=== PATIENT | female | born 1945 | race Caucasian/White ===

== ENCOUNTER 2018-07-30 17:18 | Emergency (ER) | payer BC, MEDICARE ==
[2018-07-30 18:10] LABS: ABSOLUTE NEUTROPHIL COUNT 3.12; BASO % 0.4 % (0-6); EOS % 1.7 % (0-6); GRAN % 64.4 % (47-80); HEMATOCRIT 42.9 % (35.0-47.0); HEMOGLOBIN 14.3 gm/dl (11.6-16.0); LYMPH % 26.9 % (16-45); MEAN CORPUSCULAR HEMOGLOBIN 29.7 pg (27-33); MEAN CORPUSCULAR HGB CONC 33.3 g/dl (32-36); MEAN PLATELET VOLUME 9.7 fl (7.4-10.4); MONO % 6.6 % (0-9); PLATELET COUNT 214 K/uL (130-400); RED BLOOD COUNT 4.82 M/uL (3.80-5.40); RED CELL DISTRIBUTION WIDTH 13.7 % (11.5-14.5); WHITE BLOOD COUNT W/O DIFF 4.8 K/uL (4.2-12.2)
--- NOTE | 2018-07-30 18:36 | Emergency Department Record ---
History of Present Illness - General Chief complaint: Female Urogenital Problem Stated complaint: VAGINAL BLEEDING, BIOPSY Time Seen by Provider: 07/30/18 17:23 Source: Patient Mode of Arrival: Ambulatory Limitations: No limitations - History of Present Illness Initial comments: pt had a bx of her labia this am. then this afternoon it started bleeding. she went through 6 pads and couldnt get it to stop Complaint: Vaginal bleeding Onset/Timin -: Hour(s) Severity scale (1-10): 8 Quality: Aching, Burning, Sharp Associated Symptoms: Vaginal bleeding - Related Data Home Medications Medication Instructions Recorded Confirmed Last Taken Acetaminop W/ Codeine 300/60Mg 1 udtab PO Q6HR 07/30/18 07/30/18 07/30/18 [Acetaminophen-Cod #4 Tablet] Lisinopril 20 mg PO DAILY 07/30/18 07/30/18 07/30/18 Pregabalin [Lyrica] 225 mg PO DAILY 07/30/18 07/30/18 07/30/18 Thyroid,Pork [Talent Development Director Thyroid] 15 mg PO DAILY 07/30/18 07/30/18 07/30/18 Allergies Allergy/AdvReac Type Severity Reaction Status Date / Time No Known Drug Allergies Allergy Verified 07/30/18 17:35 Travel Screening - Travel/Exposure Within Last 30 Days Have you traveled within the last 30 days?: No - Travel/Exposure Within Last Year Have you traveled outside the [place] in the last year?: No - Additonal Travel Details Have you been exposed to anyone with a communicable illness?: No - Travel Symptoms Symptom Screening: None Review of Systems Reviewed: No additional complaints except as noted below Constitutional: Reports: As per HPI. Denies: Chills, Fever, Malaise, Night sweats, Weakness, Weight change Eyes: Reports: As per HPI. Denies: Eye discharge, Eye pain, Photophobia, Vision change ENT: Reports: As per HPI. Denies: Congestion, Dental pain, Ear pain, Epistaxis, Hearing loss, Throat pain Respiratory: Reports: As per HPI. Denies: Cough, Dyspnea, Hemoptysis, Stridor, Wheezes Cardiovascular: Reports: As per HPI. Denies: Arrhythmia, Chest pain, Dyspnea on exertion, Edema, Murmurs, Orthopnea, Palpitations, Paroxysmal nocturnal dyspnea, Rheumatic Fever, Syncope Endocrine: Reports: As per HPI. Denies: Fatigue, Heat or cold intolerance, Polydipsia, Polyuria Gastrointestinal: Reports: As per HPI. Denies: Abdominal pain, Constipation, Diarrhea, Hematemesis, Hematochezia, Melena, Nausea, Vomiting Genitourinary: Reports: As per HPI. Denies: Abnormal menses, Discharge, Dyspareunia, Dysuria, Frequency, Hematuria, Incontinence, Retention, Urgency Musculoskeletal: Reports: As per HPI. Denies: Arthralgia, Back pain, Gout, Joint swelling, Myalgia, Neck pain Skin: Reports: As per HPI. Denies: Bruising, Change in color, Change in hair/nails, Lesions, Pruritus, Rash Neurological: Reports: As per HPI. Denies: Abnormal gait, Confusion, Headache, Numbness, Paresthesias, Seizure, Tingling, Tremors, Vertigo, Weakness Psychiatric: Reports: As per HPI. Denies: Anxiety, Auditory hallucinations, Depression, Homicidal thoughts, Suicidal thoughts, Visual hallucinations Hematological/Lymphatic: Reports: As per HPI. Denies: Anemia, Blood Clots, Easy bleeding, Easy bruising, Swollen glands Past Medical History - SOCIAL HISTORY Smoking Status: Never smoker Alcohol Use: None Drug Use: None - RESPIRATORY Hx Respiratory Disorders: Yes Hx Sleep Apnea: Yes Hx of CPAP: No - CARDIOVASCULAR Hx Cardio Disorders: Yes Hx Hypertension: Yes - NEURO Hx Neuro Disorders: Yes Hx Seizures: Yes - GI Hx GI Disorders: Yes Hx Abdominal Pain: Yes - Hx Genitourinary Disorders: No - ENDOCRINE Hx Endocrine Disorders: No Hx Thyroid Disease: Yes - MUSCULOSKELETAL Hx Musculoskeletal Disorders: Yes Hx Fibromyalgia: Yes - PSYCH Hx Psych Problems: No - HEMATOLOGY/ONCOLOGY Hx Hematology/Oncology Disorders: No Family Medical History Any Significant Family History?: No Physical Exam - General General Appearance: Alert, Oriented x3, Cooperative, No acute distress - Head Head exam: Normal inspection - Eye Eye exam: Normal appearance, PERRL, EOMI Pupils: Normal accommodation - ENT ENT exam: Normal exam, Mucous membranes moist, Normal external ear exam, Normal orophraynx, TM's normal bilaterally Ear exam: Normal external inspection. negative: External canal tenderness Nasal Exam: Normal inspection. negative: Discharge, Sinus tenderness Mouth exam: Normal external inspection, Tongue normal Teeth exam: Normal inspection. negative: Dental caries Throat exam: Normal inspection. negative: Tonsillar erythema, Tonsillar exudate - Neck Neck exam: Normal inspection, Full ROM. negative: Tenderness - Respiratory Respiratory exam: Normal lung sounds bilaterally. negative: Respiratory distress - Cardiovascular Cardiovascular Exam: Regular rate, Normal rhythm, Normal heart sounds - GI/Abdominal GI/Abdominal exam: Soft, Normal bowel sounds. negative: Tenderness - Rectal Rectal exam: Deferred - exam: Vaginal bleeding (from bx sight) - Extremities Extremities exam: Normal inspection, Full ROM, Normal capillary refill. negative: Tenderness - Back Back exam: Reports: Normal inspection, Full ROM. Denies: Muscle spasm, Rash noted, Tenderness - Neurological Neurological exam: Alert, Normal gait, Oriented X3, Reflexes normal - Psychiatric Psychiatric exam: Normal affect, Normal mood - Skin Skin exam: Dry, Intact, Normal color, Warm Course Vital Signs 07/30/18 17:22 Temperature 98.0 F Pulse Rate 66 Respiratory 20 Rate Blood Pressure 212/78 Pulse Ox 98 - Reevaluation(s) Reevaluation #1: 07/30/18 19:19 d/w dr sarkar who wanted silver nitrate applied Medical Decision Making - Lab Data Result diagrams: 07/30/18 18:08 Lab Results 07/30/18 Range/Units 18:08 WBC 4.8 (4.2-12.2) K/uL RBC 4.82 (3.80-5.40) M/uL Hgb 14.3 (11.6-16.0) gm/dl Hct 42.9 (35.0-47.0) % MCV 89.0 (81-97) fl MCH 29.7 (27-33) pg MCHC 33.3 (32-36) g/dl RDW 13.7 (11.5-14.5) % Plt Count 214 (130-400) K/uL MPV 9.7 (7.4-10.4) fl Gran % 64.4 (47-80) % Lymphocytes % 26.9 (16-45) % Monocytes % 6.6 (0-9) % Eosinophils % 1.7 (0-6) % Basophils % 0.4 (0-6) % Absolute Neutrophils 3.12 Disposition Disposition: Discharge Clinical Impression: Post-op bleeding Qualifiers: Surgical complication system/body Area: skin Procedure type: dermatologic Qualified Code(s): L76.21 - Postprocedural hemorrhage of skin and subcutaneous tissue following a dermatologic procedure Disposition: Home, Self-Care Condition: (1) Good Instructions: Postoperative Bleeding (ED) Additional Instructions: follow up with dr sarkar. return sooner if worse. rest. Forms: Patient Portal Access Quality - Quality Measures Quality Measures: N/A - Blood Pressure Screening Does Patient Have Any of the Following: Active Dx of HTN Blood Pressure Classification: Hypertensive Reading Systolic Measurement: 212 Diastolic Measurement: 78 Screening for High Blood Pressure: Patient Exclusion, Hx of HTN [G9744]
[2018-07-30] MEDS ORDERED: TRANEXAMIC ACID 1,000 MG/10 ML ML TOP ONE (19:42)
[2018-07-30] MEDS ORDERED: THROMBIN/GELATIN FOAM HEMOSTAT (THROMBI-GEL) TP ONE (19:45)
== END 2018-07-30 20:02 | disposition home or self-care (01) ==
LOC: ER 17:18
DX: N99.820 Postprocedural hemorrhage of a genitourinary system organ or structure following a genitourinary system procedure (principal); I10 Essential (primary) hypertension; Y84.8 Other medical procedures as the cause of abnormal reaction of the patient, or of later complication, without mention of misadventure at the time of the procedure; Y76.3 Surgical instruments, materials and obstetric and gynecological devices (including sutures) associated with adverse incidents
CPT/HCPCS: 12001; 85025; 99283; 99284

== ENCOUNTER 2018-12-02 09:38 | Emergency (ER) | payer MEDICARE ==
--- NOTE | 2018-12-02 09:46 | Emergency Department Record ---
History of Present Illness - General Chief Complaint: Fall Injury Stated Complaint: FALL Time Seen by Provider: 12/02/18 09:43 Source: Patient, Family Mode of Arrival: Ambulatory Limitations: No limitations - History of Present Illness Initial Comments: 73 yo female presents with pain after a fall last Sunday. She states she was bending over picking up gardening tools. She fell backward. She has pain over the right chest and right knee. No blood thinners. She denies and LOC. She does not think she hit her head. It hurts to cough on the right. She has had right knee surgery in the remote past. She has some nausea but no abdominal pain or tenderness. She has not seen and bruising or swelling. She has not seen her PCP or any health care provider for her current pain from last week. MD Complaint: Fall -: Days(s) Fall From: Standing (bending over) When Fall Occurred: # Days [employer]PER[employer] (5) Fall Witnessed: No Place Fall Occurred: Home Loss of Consciousness: None Prolonged Down Time?: No Symptoms Prior to Fall: None Location: Chest Location - Extremities: Right: Knee Severity: Moderate Quality: Aching Context: Other (Fell about 6 weeks ago as well) - [place] Coma Scale Eye Response: (4) Open spontaneously Motor Response: (6) Obeys commands Verbal Response: (5) Oriented [place] Total: 15 - Related Data Home Medications Medication Instructions Recorded Confirmed Last Taken Levothyroxine Sodium [Synthroid] 75 mcg PO DAILY 12/02/18 12/02/18 12/02/18 Previous Rx's Medication Instructions Recorded Hydrocodone/APAP 5/325Mg [[place] 1 each PO Q6H #12 tab 12/02/18 5Mg/325Mg] Allergies Allergy/AdvReac Type Severity Reaction Status Date / Time No Known Drug Allergies Allergy Verified 12/02/18 09:48 Review of Systems Constitutional: Denies: Chills, Fever, Malaise, Weakness Eyes: Denies: Eye discharge ENT: Denies: Congestion, Throat pain Respiratory: Denies: Cough, Dyspnea, Hemoptysis, Wheezes Cardiovascular: Reports: Chest pain (right ribs). Denies: Edema, Orthopnea, Syncope Endocrine: Denies: Fatigue, Polydipsia, Polyuria Gastrointestinal: Reports: Nausea. Denies: Abdominal pain, Diarrhea, Vomiting Genitourinary: Denies: Dysuria, Urgency Musculoskeletal: Reports: Arthralgia, Back pain, Myalgia Skin: Denies: Bruising, Change in color, Rash Neurological: Denies: Headache Psychiatric: Denies: Anxiety Hematological/Lymphatic: Denies: Easy bleeding, Easy bruising Past Medical History - SOCIAL HISTORY Smoking Status: Never smoker Drug Use: None - RESPIRATORY Hx Respiratory Disorders: Yes Hx Sleep Apnea: Yes Hx of CPAP: No - CARDIOVASCULAR Hx Cardio Disorders: Yes Hx Hypertension: Yes - NEURO Hx Neuro Disorders: Yes Hx Seizures: Yes - GI Hx GI Disorders: Yes Hx Abdominal Pain: Yes - Hx Genitourinary Disorders: No - ENDOCRINE Hx Endocrine Disorders: No Hx Thyroid Disease: Yes - MUSCULOSKELETAL Hx Musculoskeletal Disorders: Yes Hx Fibromyalgia: Yes - PSYCH Hx Psych Problems: No - HEMATOLOGY/ONCOLOGY Hx Hematology/Oncology Disorders: No Physical Exam - General General Appearance: Alert, Oriented x3, Cooperative, No acute distress Limitations: No limitations - Head Head exam: Atraumatic, Normocephalic, Normal inspection - Eye Eye exam: Normal appearance, PERRL. negative: Conjunctival injection, Scleral icterus - ENT ENT exam: Normal exam, Mucous membranes moist Ear exam: Normal external inspection Nasal Exam: Normal inspection Mouth exam: Normal external inspection Teeth exam: Normal inspection - Neck Neck exam: Normal inspection, Full ROM. negative: Lymphadenopathy, Meningismus, Tenderness - Respiratory Respiratory exam: Normal lung sounds bilaterally, Chest wall tenderness (tender right ribs in the upper anterior and lateral chest). negative: Accessory muscle use, Decreased breath sounds, Prolonged expiratory, Respiratory distress, Rhonchi, Stridor, Wheezes - Cardiovascular Cardiovascular Exam: Regular rate, Normal rhythm, Normal heart sounds Peripheral Pulses: 2+: Radial (R), Radial (L) - GI/Abdominal GI/Abdominal exam: Soft. negative: Distended, Guarding, Tenderness - Rectal Rectal exam: Deferred - exam: Deferred - Extremities Extremities exam: Normal inspection, Full ROM, Tenderness. negative: Calf tenderness, Joint swelling, Pedal edema Image of Full Body: 1 - tenderness anterior lateral chest 2 - lateral tenderness,stable - Back Back exam: Reports: Normal inspection, Full ROM. Denies: CVA tenderness (R), CVA tenderness (L), Muscle spasm, Paraspinal tenderness, Tenderness, Vertebral tenderness - Neurological Neurological exam: Alert, Oriented X3 - Psychiatric Psychiatric exam: Normal affect, Normal mood - Skin Skin exam: Dry, Intact, Normal color, Warm Course - Reevaluation(s) Reevaluation #1: 12/02/18 10:21 The CBC was reviewed No acute abnormality 12/02/18 10:53 The HCT was reviewed. No acute injury The chest CT was reviewed. minimally displaced right 5th anterior lateral rib fracture and possible ND 4th rib fracture. 12/02/18 10:56 No acute changes on the CMP The rib fractures occurred 5 days ago. Her vitals reviewed. No hypoxia, tac hycardia or signs of impairment after 5 days. She will be treated with increased pain control, RT to teach IS. We discussed home care and importance of scheduling a recheck with the PCP as well as reasons to return to the ED for a recheck. 12/02/18 11:20 The Knee XR was reviewed. No fracture. Significant degenerative changes noted. 12/02/18 11:39 The patient remains calm with her breathing RT finished the education on breathing exercises She has normal vitals and ready for DC Medical Decision Making - Lab Data Result diagrams: 12/02/18 09:53 12/02/18 09:53 Disposition Disposition: Discharge Clinical Impression: Right rib fracture Qualifiers: Encounter type: initial encounter Rib fracture type: multiple ribs Fracture type: closed Qualified Code(s): S22.41XA - Multiple fractures of ribs, right side, initial encounter for closed fracture Contusion, knee Qualifiers: Encounter type: initial encounter Laterality: right Qualified Code(s): S80.01XA - Contusion of right knee, initial encounter Disposition: Home, Self-Care Condition: (1) Good Instructions: Rib Fracture (ED), Knee Pain (ED) Additional Instructions: Call your doctor for the next available follow up appointment to be seen this week Review this ER visit and the tests performed with your family doctor Return to the ER for a recheck if worse, any new concerns or questions Take the prescriptions provided as directed Use the breathing exercise as directed by the respiratory therapy for your rib fractures Prescriptions: Hydrocodone/APAP 5/325Mg [[place] 5Mg/325Mg] 1 each PO Q6H #12 tab Forms: Patient Portal Access Time of Disposition: 11:21 Quality - Quality Measures Quality Measures: N/A - Blood Pressure Screening Does Patient Have Any of the Following: Active Dx of HTN Blood Pressure Classification: Hypertensive Reading Systolic Measurement: 169 Diastolic Measurement: 79 Screening for High Blood Pressure: Patient Exclusion, Hx of HTN [G9744]
[2018-12-02 10:03] LABS: ABSOLUTE NEUTROPHIL COUNT 2.93; BASO % 0.2 % (0-6); EOS % 1.6 % (0-6); HEMATOCRIT 44.8 % (35.0-47.0); HEMOGLOBIN 14.3 gm/dl (11.6-16.0); LYMPH % 25.9 % (16-45); MEAN CELL VOLUME 89.4 fl (81-97); MEAN CORPUSCULAR HEMOGLOBIN 28.5 pg (27-33); MEAN CORPUSCULAR HGB CONC 31.9 g/dl (32-36); MEAN PLATELET VOLUME 9.4 fl (7.4-10.4); MONO % 6.3 % (0-9); PLATELET COUNT 213 K/uL (130-400); RED BLOOD COUNT 5.01 M/uL (3.80-5.40); WHITE BLOOD COUNT W/O DIFF 4.4 K/uL (4.2-12.2)
[2018-12-02 10:16] LABS: BLOOD UREA NITROGEN 15 mg/dL (8-23)
[2018-12-02 10:17] LABS: CREATININE 0.7 mg/dL (0.5-0.9); EST GLOMERULAR FILTRATION RATE > 60 mL/min; PARTIAL THROMBOPLASTIN TIME 28.7 SECONDS (24.5-39.1); PROTHROMBIN TIME (PATIENT) 10.4 SECONDS (9.5-12.1)
[2018-12-02 10:19] LABS: GLUCOSE,RANDOM 109 mg/dL (74-109)
[2018-12-02 10:22] LABS: ALB/GLOB RATIO 1.6 (1.1-1.8); ALBUMIN 4.3 g/dL (4.0-5.0); ALKALINE PHOSPHATASE 115 U/L (35-104); ALT/SGPT 14 U/L (<33); AST/SGOT 16 U/L (10.0-35.0)
[2018-12-02] MEDS ORDERED: KETOROLAC 30 MG/ML VIAL IVP ONE (11:13)
[2018-12-02] MEDS ORDERED: HYDROCODONE/APAP 7.5/325MG TABLET PO ONE (11:13)
[2018-12-02] MEDS ORDERED: ACETAMINOPHEN 1,000 MG/100 ML BTL IVPB ONE (11:13)
--- NOTE | 2018-12-04 08:20 | CT SCAN REPORT ---
EXAM: CT OF THE BRAIN WITHOUT CONTRAST HISTORY: PAIN RIGHT MID RIBS AND AXILLARY REGION. FALL SIX WEEKS AGO. TRAUMA TO HEAD SIX WEEKS AGO AND FIVE DAYS AGO. TECHNIQUE: Routine noncontrast CT of the brain was obtained. Comparison: None. FINDINGS: The ventricles and subarachnoid spaces are normal in size for age. Minor white matter lucencies are noted in the cerebral hemispheres. These are nonspecific, but likely areas of chronic microvascular ischemia. No other area of abnormally increased or decreased attenuation is noted throughout the brain substance. No abnormal extraaxial fluid collection identified. No acute skull fracture. The visualized paranasal sinuses and mastoid air cells are clear. The orbits as visualized are unremarkable. IMPRESSION: 1. NO CT EVIDENCE OF AN ACUTE INTRACRANIAL ABNORMALITY NOR SKULL FRACTURE. 2. MINOR WHITE MATTER LUCENCIES IN EACH CEREBRAL HEMISPHERE ARE NONSPECIFIC, BUT LIKELY AREAS OF CHRONIC MICROVASCULAR ISCHEMIA. JOB NUMBER: [id number] AND [id number] [facility]
--- NOTE | 2018-12-04 08:33 | CT SCAN REPORT ---
EXAM: CT OF THE CHEST WITHOUT CONTRAST HISTORY: PAIN IN RIGHT MID RIBS AND AXILLA. MULTIPLE FALLS. TECHNIQUE: Routine noncontrast helical CT examination of the chest was obtained. Comparison: None. FINDINGS: The heart is mildly enlarged. There is atherosclerosis of the thoracic aorta without focal aneurysmal dilatation. The ascending thoracic aorta at the level of the right main pulmonary artery measures approximately 3.5 cm. No suspicious noncalcified mediastinal or hilar mass/lymphadenopathy is seen though evaluation of the fiordaliza is limited by lack of IV contrast utilization. There are calcified lymph nodes in the low paratracheal, precarinal, and right hilar regions consistent with healed granulomatous disease. There is questionable trace fluid in the dependent right basilar pleural space. The pleural spaces are otherwise clear. The central airways are clear. No lung consolidation is identified. Mild dependent atelectasis is suspected in each lung. No axillary adenopathy nor hematoma. There is a minimally displaced acute fracture of the anterolateral aspect of the right fifth rib. There is a possible nondisplaced fracture of the anterolateral right fourth rib. No other acute rib fracture is demonstrated. No lytic or blastic bone lesion. There are degenerative changes scattered throughout the visualized spine and shoulder girdles. The adrenal glands are not enlarged. The renal collecting system pelves are somewhat patulous likely due to their extrarenal location. The gallbladder is surgically absent. There is prominence of the central biliary tree likely a physiologic response to surgical absence of the gallbladder. Correlation with serum bilirubin and alkaline phosphatase levels is recommended. Healed granulomatous disease within the spleen. IMPRESSION: 1. MINIMALLY DISPLACED FRACTURE OF THE ANTEROLATERAL RIGHT FIFTH RIB AND POSSIBLE NONDISPLACED FRACTURE OF THE ANTEROLATERAL RIGHT FOURTH RIB. 2. CARDIOMEGALY. 3. MILD DEPENDENT ATELECTASIS IN EACH LUNG. 4. POSSIBLE TINY DEPENDENT RIGHT BASILAR PLEURAL EFFUSION. NO PNEUMOTHORAX. 5. HEALED GRANULOMATOUS DISEASE WITHIN THE THORAX AND SPLEEN. 6. STATUS POST CHOLECYSTECTOMY. MILD PROMINENCE OF THE CENTRAL BILIARY TREE LIKELY RELATES TO PHYSIOLOGIC RESPONSE TO SURGICAL ABSENCE OF THE GALLBLADDER. CORRELATION WITH SERUM BILIRUBIN AND ALKALINE PHOSPHATASE LEVELS IS RECOMMENDED. 7. 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 JOB NUMBER: [id number] [facility]
--- NOTE | 2018-12-04 08:37 | RADIOLOGY REPORT ---
EXAM: RIGHT KNEE, TWO VIEWS HISTORY: DIFFUSE RIGHT KNEE PAIN. RECENT FALLS. TECHNIQUE: AP and lateral views of the right knee were obtained. Comparison: None. Encounter: Initial. FINDINGS: There is borderline to mild diffuse osteopenia. No convincing acute fracture nor dislocation. 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 There is a borderline to small suprapatellar joint effusion. There is a possible loose body within the suprapatellar bursa medially. IMPRESSION: 1. BORDERLINE TO MILD DIFFUSE OSTEOPENIA. NO ACUTE FRACTURE NOR DISLOCATION. 2. TRICOMPARTMENTAL OSTEOARTHRITIS WITH BORDERLINE TO SMALL SUPRAPATELLAR JOINT EFFUSION. POSSIBLE 8 MM LOOSE BODY IN THE SUPRAPATELLAR BURSA MEDIALLY. JOB NUMBER: [id number] [facility]
== END 2018-12-02 11:58 | disposition home or self-care (01) ==
LOC: ER 09:38
DX: S22.41XA Multiple fractures of ribs, right side, initial encounter for closed fracture (principal); S80.01XA Contusion of right knee, initial encounter; R11.0 Nausea; X50.1XXA Overexertion from prolonged static or awkward postures, initial encounter; Y93.H2 Activity, gardening and landscaping; Y92.007 Garden or yard of unspecified non-institutional (private) residence as the place of occurrence of the external cause; I10 Essential (primary) hypertension
CPT/HCPCS: 70450; 71250; 80053; 85025; 85610; 85730; 94010; 96374; 99284; J1885

== ENCOUNTER 2018-12-27 13:48 | Emergency (ER) | payer MEDICARE ==
--- NOTE | 2018-12-27 14:20 | Emergency Department Record ---
History of Present Illness - General Chief complaint: Pain Stated complaint: R HIP PAIN Time Seen by Provider: 12/27/18 13:52 Source: Patient Mode of Arrival: EMS Limitations: No limitations - History of Present Illness Initial comments: The patient is here due to R hip and back pain for 2 weeks. The patient did fall 4 weeks ago and broke 2 ribs on the R side. She had been doing well until 2 weeks ago when her R hip began hurting. She had been ambulating OK at home until today when she felt the R hip pain worsen. There is no hx of new falls or inflakito lopez MD Complaint: Joint pain Onset/Timin -: Week(s) Location: Right Radiation: None Severity scale (1-10): 10 Quality: Aching Consistency: Intermittent Improves with: Nothing Worsens with: Nothing - Related Data Previous Rx's Medication Instructions Recorded Acetaminophen with Codeine 1 each PO QID #10 tablet 12/27/18 [Tylenol with Codeine #4 Tablet] Allergies Allergy/AdvReac Type Severity Reaction Status Date / Time No Known Drug Allergies Allergy Verified 12/02/18 09:48 Travel Screening - Travel/Exposure Within Last 30 Days Have you traveled within the last 30 days?: No - Travel/Exposure Within Last Year Have you traveled outside the [place] in the last year?: No - Travel Symptoms Symptom Screening: None Review of Systems Constitutional: Denies: Chills, Fever Eyes: Denies: Eye discharge ENT: Denies: Congestion Respiratory: Denies: Cough, Dyspnea Past Medical History - SOCIAL HISTORY Smoking Status: Never smoker Alcohol Use: None Drug Use: None - RESPIRATORY Hx Respiratory Disorders: Yes Hx Sleep Apnea: Yes Hx of CPAP: No - CARDIOVASCULAR Hx Cardio Disorders: Yes Hx Hypertension: Yes - NEURO Hx Neuro Disorders: Yes Hx Seizures: Yes - GI Hx GI Disorders: Yes Hx Abdominal Pain: Yes - Hx Genitourinary Disorders: No - ENDOCRINE Hx Endocrine Disorders: No Hx Thyroid Disease: Yes - MUSCULOSKELETAL Hx Musculoskeletal Disorders: Yes Hx Fibromyalgia: Yes - PSYCH Hx Psych Problems: No - HEMATOLOGY/ONCOLOGY Hx Hematology/Oncology Disorders: No Family Medical History Any Significant Family History?: No Physical Exam - General General Appearance: Alert, Oriented x3, Cooperative, No acute distress - Head Head exam: Atraumatic, Normocephalic - Eye Eye exam: Normal appearance, PERRL - ENT Throat exam: Normal inspection. negative: Tonsillar erythema, Tonsillar exudate - Neck Neck exam: Normal inspection, Full ROM. negative: Tenderness - Respiratory Respiratory exam: Normal lung sounds bilaterally. negative: Respiratory distress - Cardiovascular Cardiovascular Exam: Regular rate, Normal rhythm, Normal heart sounds - GI/Abdominal GI/Abdominal exam: Soft, Normal bowel sounds. negative: Tenderness - Extremities Extremities exam: Tenderness (There is significant R hip and knee tenderness with decreased ROM of both joints.). negative: Normal inspection, Full ROM - Back Back exam: Reports: Normal inspection, Vertebral tenderness (mild L3-5) - Neurological Neurological exam: Abnormal gait (The patient is able to walk on her own with a walker and sometimes with a cane.), Alert, Oriented X3. negative: Altered, Motor sensory deficit, Normal gait Course Vital Signs 12/27/18 14:10 Temperature 97.9 F Pulse Rate 67 Respiratory 16 Rate Blood Pressure 180/81 Pulse Ox 97 - Reevaluation(s) Reevaluation #1: The patient is doing OK at this time and is able to walk on her own with minimal difficulty. I did discuss the xray results with the patient and the need to see her doctor in 1-2 weeks for recheck. 12/27/18 15:26 Medical Decision Making - Data Complexity MDM Data: X-Ray Ordered and/or Reviewed - Radiology Data Radiology results: Report reviewed (LS SPine: Neg for acute changes. R Hip: Neg for acute changes.) Disposition Disposition: Discharge Clinical Impression: Contusion of hip, right Qualifiers: Encounter type: initial encounter Qualified Code(s): S70.01XA - Contusion of right hip, initial encounter Disposition: Home, Self-Care Condition: (2) Stable Instructions: Hip Contusion (ED) Additional Instructions: Please continue your regular medicines and use your cane and walker for walking. Please see your family doctor for recheck when possible and return to the ER for any worsening issues. Prescriptions: Acetaminophen with Codeine [Tylenol with Codeine #4 Tablet] 1 each PO QID #10 tablet Forms: Patient Portal Access Time of Disposition: 15:31 Quality - Quality Measures Quality Measures: N/A - Blood Pressure Screening View Details: Yes Does Patient Have Any of the Following: No Blood Pressure Classification: Pre-Hypertensive BP Reading Systolic Measurement: 180 Diastolic Measurement: 81 Screening for High Blood Pressure: < Pre-Hypertensive BP, F/U Documented > [G8950] Pre-Hypertensive Follow-up Interventions: Referral to alternative/primary care provider.
--- NOTE | 2018-12-27 15:15 | RADIOLOGY REPORT ---
EXAMINATION: Right Hip Minimum Two Views EXAM DATE: 12/27/2018 2:54 PM TECHNIQUE: AP pelvis and right frog leg lateral hip views INDICATION: pain and trauma COMPARISON: None ENCOUNTER: Initial FINDINGS: Normal bony architecture. Degenerative change LS-spine. SI joints patent and symmetrical. Mild arthro sis joint space narrowing juxta-articular sclerosis mild inferior spurring. No acute fracture or disl ocation. IMPRESSION: No acute abnormality, follow-up MRI if symptoms persist Dictated by: Manuel Sibley MD on 12/27/2018 3:12 PM. .
--- NOTE | 2018-12-27 15:18 | RADIOLOGY REPORT ---
EXAMINATION: Lumbar Spine Two or Three Views EXAM DATE: 12/27/2018 2:54 PM TECHNIQUE: AP and lateral views INDICATION: pain and trauma COMPARISON: None ENCOUNTER: Initial FINDINGS: Mild levoconvex curvature of the lumbar spine has an apex at the L3 level. Severe disc height narrowing, sclerosis and spurring are seen at T11-12, T12-L1, L3-4, and L5-S1. Mild endplate degenerative changes are seen at L1-2. Moderate endplate degenerative changes are seen at L2-3 and L4-5. No acute fracture or subluxation. The hip joints are included in the [id number]. Moderate degenerative sclerosis spurring and joint space narrowing are seen in the lateral aspect of the right hip joint. Mild degenerative changes are seen in the left hip joint. A calcification in the left upper quadrant suspicious for splenic artery calcification. Surgical clips are noted in the right upper quadrant. IMPRESSION: 1. No acute fracture. 2. Chronic changes are described above. Dictated by: Tigre Hou MD on 12/27/2018 3:12 PM. .
== END 2018-12-27 15:46 | disposition home or self-care (01) ==
LOC: ER 13:48
DX: S70.01XA Contusion of right hip, initial encounter (principal); M25.561 Pain in right knee; M54.5 Low back pain; W19.XXXA Unspecified fall, initial encounter; I10 Essential (primary) hypertension
CPT/HCPCS: 72100; 99284